=== PATIENT | male | born 1995 | race Caucasian/White ===

== ENCOUNTER 2020-08-06 20:10 | Emergency (ER) | payer BC, SELFPAY ==
[~2020-08-06] VITALS: Ht 172.7 cm; Wt 127.0 kg
[2020-08-06 20:10] VITALS: BP_SYST 153
--- NOTE | 2020-08-06 20:55 | NUR ---
Patient to ER bed 7 to gown for evaluation. Side rails up. Report given to VASILE VICKERS.
--- NOTE | 2020-08-06 21:00 | NUR ---
ER DR. WAY AT THE BEDSIDE EVALUATING PT
--- NOTE | 2020-08-06 21:05 | NUR ---
PT CAME IN FROM HOME FOR N/V X 3 DAYS, ABD PAIN TO RIGHT SIDE, AND CHEST WALL PAIN. ALSO REPORTS COUGH AND POSSIBLE EXPOSURE TO COVID-19 BY FAMILY HE HAS HAD CONTACT WITH RECENTLY. NO SOB OR RADIATION OF PAIN WITH CHEST. PT IS AAOX4, V/S STABLE
[2020-08-06] MEDS ORDERED: ONDANSETRON HCL 4 MG/2 ML VIAL IVP ONE (21:15)
[2020-08-06] MEDS ORDERED: MAG-AL HYDROX/SIMETH 30 ML UDC PO ONE (21:15)
--- NOTE | 2020-08-06 21:28 | NUR ---
PORTABLE X-RAY AT THE BEDSIDE
[2020-08-06 21:35] LABS: BASOPHILS % (AUTO) 0.5 % (0.0-2.0); EOSINOPHILS % (AUTO) 0.2 % (0.0-4.0); HEMATOCRIT 44.9 % (36-54); HEMOGLOBIN 15.7 g/dL (14.0-18.0); LYMPHOCYTES % (AUTO) 20.9 % (20.5-51.5); MEAN CORPUSCULAR HEMOGLOBIN 26 pg (27-31); MEAN CORPUSCULAR HGB CONC 35 % (32-36); MEAN CORPUSCULAR VOLUME 76 fL (79.0-98.0); MONOCYTES # (AUTO) 1.2 K/uL (0.0-1.0); MONOCYTES % (AUTO) 12.4 % (1.7-9.3); NEUTROPHILS # (AUTO) 6.2 K/uL (1.8-7.7); PLATELET COUNT (AUTO) 163 K/uL (130-430); RED BLOOD CELL COUNT(AUTO) 5.93 MIL/uL (4.2-6.2); RED CELL DISTRIBUTION WIDTH 14.2 % (9.0-15.0); WHITE BLOOD COUNT (AUTO) 9.3 K/uL (4.8-10.8)
[2020-08-06 22:00] LABS: ANION GAP 11 (5-15); CALCIUM 8.9 mg/dL (8.4-11.0); CHLORIDE 103 mmol/L (98-107); CREATININE 1.13 mg/dL (0.55-1.30); GLUCOSE 93 mg/dL (70-99); POTASSIUM 3.6 mmol/L (3.5-5.1); SODIUM SERUM 138 mmol/L (136-145); UREA NITROGEN, BLOOD 17 mg/dL (8-21)
[2020-08-06 22:10] LABS: ALANINE AMINOTRANSFERASE 133 U/L (12-78); ALBUMIN 4.5 g/dL (3.4-4.8); ASPARTATE AMINOTRANSFERASE 69 U/L (10-37); LIPASE 83 U/L (73-393); TOTAL BILIRUBIN 0.7 mg/dL (0.0-1.0)
[2020-08-06 22:11] LABS: GFR AFRICAN AMERICAN 103 mL/min (>90)
--- NOTE | 2020-08-06 23:09 | NUR ---
Patient transported to radiology via WC, accompanied by STAFF.
[2020-08-06 23:10] LABS: BILIRUBIN,URINE NEGATIVE (NEGATIVE); BLOOD, URINE NEGATIVE (NEGATIVE); CLARITY/URINE CLEAR (CLEAR); COLOR,URINE YELLOW (YELLOW); GLUCOSE,URINE NEGATIVE (NEGATIVE); KETONES,URINE TRACE (NEGATIVE); LEUKOCYTE ESTERASE ,URINE NEGATIVE (NEGATIVE); NITRITE, URINE NEGATIVE (NEGATIVE); PH,URINE 5.5 (5.0-8.0); PROTEIN URINE NEGATIVE (NEGATIVE); UROBILINOGEN,URINE 0.2 (0.2-1.0)
[2020-08-06] MEDS ORDERED: METOCLOPRAMIDE HCL 10 MG/2 ML VIAL IVP ONE (23:30)
--- NOTE | 2020-08-06 23:30 | NUR ---
PT RETURNED FROM RADIOLOGY AFTER REFUSING TO COMPLETE THE SCAN. REPORTS FEELING TOO ANXIOUS INSIDE THE MACHINE. DOES NOT WISH TO CONTINUE. MADE AWARE
--- NOTE | 2020-08-06 23:30 | NUR ---
PT ABLE TO DRINK WATER WITHOUT N/V. DENIES ANY ABD PAIN
[2020-08-06 23:45] VITALS: BP_SYST 153
--- NOTE | 2020-08-06 23:45 | NUR ---
Patient does not wish to proceed with medical care recommended by DR. WAY. Patient given information related to possible complications, up to and including , which could occur as a result of leaving hospital at this time. Patient verbalizes understanding of risks involved leaving against medical advice. Patient has signed AMA form.
== END 2020-08-06 23:45 | disposition left against medical advice (07) ==
LOC: SED 20:10
DX: U07.1 COVID-19 (principal); A08.4 Viral intestinal infection, unspecified
CPT/HCPCS: 71045; 76705; 80053; 81003; 83690; 84484; 85025; 85379; 93005; 96374; 96375; 99285; C9803; J2405; J2765; Q9967; U0003; 36415